=== PATIENT | male | born 1985 | race American Indian/Alaskan Native ===

== ENCOUNTER 2020-11-27 18:54 | Observation (INO) | payer OTHER ==
[2020-11-27] MEDS ORDERED: ONDANSETRON 4 MG/2 ML INJ IV ONE (21:19)
[2020-11-27] MEDS ORDERED: FAMOTIDINE 20 MG/2 ML INJ IV ONE (21:19)
[2020-11-27] MEDS ORDERED: DICYCLOMINE 20 MG/2 ML INJ IM ONE (21:20)
[2020-11-27 22:31] LABS: Basophils % (Auto) 0.3 % (0.0-1.8); Hematocrit 50.2 % (35.5-45.6); Hemoglobin 16.7 gm/dl (11.8-15.2); Lymphocytes # (Auto) 1.2 K/mm3 (1.2-5.4); Lymphocytes % (Auto) 12.5 % (13.4-35.0); Mean Corpuscular HGB Conc 33 % (32-34); Mean Corpuscular Volume 87 fl (84-94); Monocytes # (Auto) 0.3 K/mm3 (0.0-0.8); Monocytes % (Auto) 2.7 % (0.0-7.3); Platelet Count 289 K/mm3 (140-440); Red Blood Count 5.78 M/mm3 (3.65-5.03); Red Cell Distribution Width 13.3 % (13.2-15.2)
--- NOTE | 2020-11-27 22:42 | Emergency Department Report ---
<CECY LI - Last Filed: 11/28/20 06:49> ED Abdominal Pain HPI - General Chief Complaint: Abdominal Pain Stated Complaint: ABD PAIN Source: patient Mode of arrival: Ambulatory Limitations: No Limitations - History of Present Illness Initial Comments: Patient is a 35-year-old -Swazi male with a history of jhb-nhpdsum-wvcgemxbb diabetes who presents to the ED with complaint of acute onset persistent diffuse abdominal pain, nausea and vomiting with diarrhea for the last 12 hours. Patient states that the last meal he ate was from a restaur ant about 24 hours ago. Patient states that he has not been able to keep anything down including fluids since the onset of the symptoms. Patient denies fever, chills, dizziness, syncope, chest pain, sore throat, dysuria, urinary frequency and urgency, testicular pain, hematuria, sore throat, headache, lightheadedness, palpitations or change in vision and hematemesis. MD Complaint: abdominal pain, other (Nausea, vomiting and diarrhea) -: Sudden, hour(s) (12) Location: diffuse Radiation: none Migration to: no migration Severity: severe Severity scale (0 -10): 8 Quality: cramping, sharp Consistency: constant Improves With: nothing Worsens With: eating, vomiting Associated Symptoms: denies other symptoms, nausea, vomiting, diarrhea - Related Data Allergies Allergy/AdvReac Type Severity Reaction Status Date / Time No Known Allergies Allergy Verified 11/27/20 19:49 ED Review of Systems Constitutional: denies: chills, fever Eyes: denies: eye pain, eye discharge, vision change ENT: denies: ear pain, throat pain Respiratory: denies: cough, shortness of breath, wheezing Cardiovascular: denies: chest pain, palpitations Endocrine: no symptoms reported Gastrointestinal: abdominal pain, nausea, vomiting, diarrhea Genitourinary: denies: urgency, dysuria Musculoskeletal: denies: back pain, joint swelling, arthralgia Skin: denies: rash, lesions Neurological: denies: headache, weakness, paresthesias Psychiatric: denies: anxiety, depression Hematological/Lymphatic: denies: easy bleeding, easy bruising ED Past Medical Hx - Past Medical History Previous Medical History?: No Hx Diabetes: Yes (type 2) - Surgical History Past Surgical History?: No - Social History Smoking Status: Never Smoker Substance Use Type: None ED Physical Exam - General Limitations: No Limitations General appearance: alert, in no apparent distress - Head Head exam: Present: atraumatic, normocephalic, normal inspection - Eye Eye exam: Present: normal appearance, PERRL, EOMI Pupils: Present: normal accommodation - ENT ENT exam: Present: normal exam, normal orophraynx, mucous membranes moist, TM's normal bilaterally, normal external ear exam - Neck Neck exam: Present: normal inspection, full ROM - Respiratory Respiratory exam: Present: normal lung sounds bilaterally. Absent: respiratory distress, wheezes, rales, rhonchi, chest wall tenderness, accessory muscle use, decreased breath sounds, prolonged expiratory - Cardiovascular Cardiovascular Exam: Present: regular rate, normal rhythm, normal heart sounds. Absent: systolic murmur, diastolic murmur, rubs, gallop - GI/Abdominal GI/Abdominal exam: Present: soft, tenderness (Palpable diffuse severe abdominal tenderness with guarding), guarding, normal bowel sounds, hyperactive bowel sounds. Absent: distended, rebound - Extremities Exam Extremities exam: Present: normal inspection, full ROM, normal capillary refill - Back Exam Back exam: Present: normal inspection, full ROM. Absent: tenderness, CVA tenderness (R), CVA tenderness (L), muscle spasm, paraspinal tenderness, vertebral tenderness - Neurological Exam Neurological exam: Present: alert, oriented X3, CN II-XII intact, normal gait, reflexes normal - Psychiatric Psychiatric exam: Present: normal affect, normal mood, anxious - Skin Skin exam: Present: warm, dry, intact, normal color. Absent: rash ED Medical Decision Making - Lab Data Result diagrams: 11/27/20 22:00 11/27/20 22:00 - Radiology Data [address] [address] Cat Scan Report Signed Patient: JOVANY ENGLAND MR# : [id number] : 1985 Acct:[id number] Age/Sex: 35 / M ADM Date: 11/27/20 Loc: ED Attending Dr: Ordering Physician: STEPHEN WALLACE Date of Service: 11/27/20 Procedure(s): CT abdomen pelvis w con Accession Number(s): [id number] cc: STEPHEN WALLACE CT OF THE ABDOMEN AND PELVIS WITH INTRAVENOUS CONTRAST INDICATION / CLINICAL INFORMATION: Abdominal pain with nausea, vomiting and diarrhea. TECHNIQUE: The patient received 100 cc Omnipaque [address] scans at this location are performed using CT dose reduction for ALARA by means of automated exposure control. COMPARISON: None available. FINDINGS: ABDOMEN: There is mild diffuse fatty infiltration of the liver without focal lesion. The gallbladder, bile ducts, pancreas, spleen, adrenal glands and right kidney are normal. There is a subcentimeter simple cyst in the lower pole of the left kidney. There is no evidence of bowel obstruction, wall thickening or free air. No adenopathy is identified. The lung bases are clear. PELVIS: The distal ureters, urinary bladder, prostate gland and seminal vesicles are normal. There are symmetric calcifications involving the vas deferens bilaterally. A normal appendix is present. There is no evidence of diverticulitis. No abnormal mass or fluid collection is seen. I do not identify a hernia. No acute osseous abnormality is present. IMPRESSION: 1. No acute abnormality. 2. Bilateral vas deferens calcifications are characteristic of diabetes. Signer Name: Jose Zayas MD Signed: 11/28/2020 2:16 AM Workstation Name: [email or web address] Transcribed By: RT Dictated By: Jose Zayas MD Electronically Authenticated By: Jose Zayas MD Signed Date/Time: 11/28/20215 DD/ 0 TD/TT: - Medical Decision Making This is a 35-year-old -Swazi male with a history of bpr-vetxscz-frzxyefip diabetes who presents to the ED with complaint of acute onset persistent diffuse abdominal pain, nausea and vomiting with diarrhea for the last 12 hours. Patient states that the last meal he ate was from a restaurant about 24 hours ago. Patient states that he has not been able to keep anything down including fluids since the onset of the symptoms. In the ED, patient is alert and oriented x3 and is not in any distress but febrile and tachycardic in triage. Patient was treated in the ED for nausea and vomiting, also given antacids and normal saline 2 L IV bolus, also treated for pain. Lab test results were reviewed and are all nonactionable except for mild hyponatremia 135 mmol/L and hyperglycemia of 388 mg/dL. Abdomen pelvis CT scan with contrast showed no acute abnormalities. On reevaluation, patient's nausea and vomiting resolved with medications. Patient felt better tachycardia also resolved. However patient blood glucose remained high at 388 mg/dL despite the patient receiving IV fluids. Patient was therefore treated with insulin 10 units IV x1 and observed in the ED. Patient care was transferred to Mr. Hardy Araujo TRUCKLOAD OWNER OPERATOR at shift change. He shall review the patient's final [id number] glucose test results and disposition the patient accordingly. Patient shall be discharged home on antiemetics, antacids and antispasmodic medications. - Differential Diagnosis Gastroenteritis; gastritis; appendicitis; cholecystitis; UTI; GERD ED Disposition Clinical Impression: Intractable nausea and vomiting Hyperglycemia due to type 2 diabetes mellitus Qualifiers: Diabetes mellitus salvage determiner insulin use: without assisted use Qualified Code(s): E11.65 - Type 2 diabetes mellitus with hyperglycemia DKA (diabetic ketoacidoses) Qualifiers: Diabetes mellitus type: type 2 Diabetes mellitus complication detail: without coma Qualified Code(s): E11.10 - Type 2 diabetes mellitus with ketoacidosis without coma Disposition: 09 OP ADMIT IP TO THIS HOSP Is pt being admited?: No Does the pt Need Aspirin: No Condition: Stable Instructions: Diabetes Mellitus Type 2 in Adults (ED), Diabetic Ketoacidosis (ED) Time of Disposition: 06:12 Print Language: TURKISH <HARDY ARAUJO - Last Filed: 11/28/20 09:07> ED Review of Systems ROS: Stated complaint: ABD PAIN Other details as noted in HPI ED Course Vital Signs 11/27/20 11/28/20 11/28/20 19:49 02:56 06:29 Temperature 98.7 F Pulse Rate 110 H 114 H Respiratory 16 18 18 Rate Blood Pressure 158/97 Blood Pressure 155/70 [Right] O2 Sat by Pulse 97 Oximetry 11/28/20 07:53 Temperature Pulse Rate 114 H Respiratory 18 Rate Blood Pressure Blood Pressure [Right] O2 Sat by Pulse 99 Oximetry - Reevaluation(s) Reevaluation #1: 11/28/20 07:10 At this time patient signed out to me by Cecy MITCHELL for pending glucose less than 250 and patient to be discharged. Upon exam patient is stable with no nausea vo miting. Patient is resting comfortably with no acute signs of distress. Patient is still slightly tachycardic at 118. 1 L normal fluids will be administered and if sugar is not less than 300 patient will receive 5 more units. Patient was consulted with Dr. Epperson and agrees to the ED plan of ca re. - Consultations Consultation #1: 11/28/20 09:03 Patient has been consulted with hospitalist Dr. RECINOS about patient history, physical exam, and labs and accepts patient to services. ED Medical Decision Making - Lab Data Result diagrams: 11/27/20 22:00 11/27/20 22:00 - Medical Decision Making Patient was originally seen by Cecy MITCHELL and was signed out to me for pending glucose levels less than 250. Despite giving medical resuscitation in the ER with fluids, nausea medication and insulin patient's nausea is still present with tachycardia and hyperglycemia. Patient admitted with hospitalist at this time. At time of admission, the patient does not seem toxic or ill in appearance. No acute signs of distress noted. Patient agrees to admission treatment plan of care. No further questions noted by the patient. Critical care attestation.: If time is entered above; I have spent that time in minutes in the direct care of this critically ill patient, excluding procedure time. ED Disposition Is pt being admited?: Yes Time of Disposition: 09:07
[2020-11-27 22:45] LABS: Alanine Aminotransferase 27 units/L (7-56); Albumin 4.9 g/dL (3.9-5); BUN/Creatinine Ratio 12; Blood Urea Nitrogen 12 mg/dL (9-20); Calcium 10.3 mg/dL (8.4-10.2); Hemolysis Index 8
--- NOTE | 2020-11-28 02:20 | Cat Scan Report ---
CT OF THE ABDOMEN AND PELVIS WITH INTRAVENOUS CONTRAST INDICATION / CLINICAL INFORMATION: Abdominal pain with nausea, vomiting and diarrhea. TECHNIQUE: The patient received 100 cc Omnipaque [address] scans at this location are performed using CT dose reduction for ALARA by means of automated exposure control. COMPARISON: None available. FINDINGS: ABDOMEN: There is mild diffuse fatty infiltration of the liver without focal lesion. The gallbladder, bile ducts, pancreas, spleen, adrenal glands and right kidney are normal. There is a subcentimeter s imple cyst in the lower pole of the left kidney. There is no evidence of bowel obstruction, wall thic kening or free air. No adenopathy is identified. The lung bases are clear. PELVIS: The distal ureters, urinary bladder, prostate gland and seminal vesicles are normal. There ar e symmetric calcifications involving the vas deferens bilaterally. A normal appendix is present. Ther e is no evidence of diverticulitis. No abnormal mass or fluid collection is seen. I do not identify a hernia. No acute osseous abnormality is present. IMPRESSION: 1. No acute abnormality. 2. Bilateral vas deferens calcifications are characteristic of diabetes. Signer Name: Jose Zayas MD Signed: 11/28/2020 2:16 AM Workstation Name: [email or web address]
[2020-11-28] MEDS ORDERED: SODIUM CHLORIDE 0.9% 1000 ML 1,000 ML IV ONE ×3 (02:33→08:12)
[2020-11-28] MEDS ORDERED: FAMOTIDINE 20 MG/2 ML INJ IV ONE (02:41)
[2020-11-28] MEDS ORDERED: PROCHLORPERAZINE EDISYLATE 10 MG/2 ML VIAL IV ONE (02:41)
[2020-11-28] MEDS ORDERED: MORPHINE 4 MG/1 ML INJ IV ONE (02:41)
[2020-11-28 06:13] LABS: Bilirubin,Urine NEG (Negative); Blood,Urine NEG (Negative); Color,Urine Straw (Yellow); Urobilinogen,Urine < 2.0 mg/dL (<2.0); WBC,Urine < 1.0 /HPF (0.0-6.0)
[2020-11-28] MEDS ORDERED: INSULIN REGULAR, HUMAN 100 UNITS/1 ML IV ONE ×2 (06:28→08:12)
[2020-11-28] MEDS ORDERED: ONDANSETRON 4 MG/2 ML INJ IV ONE (06:53)
[2020-11-28] MEDS ORDERED: DEXTROSE 50% IN WATER (25GM) 50 ML SYRINGE IV PRN (09:22)
[2020-11-28] MEDS ORDERED: METOCLOPRAMIDE 10 MG/2 ML INJ IV PRN (09:24)
[2020-11-28] MEDS ORDERED: DICYCLOMINE 10 MG/5 ML ORAL LIQD PO PRN (09:25)
[2020-11-28] MEDS ORDERED: INSULIN GLARGINE 100 UNITS/ML SUB-Q ONE (10:00)
--- NOTE | 2020-11-28 11:29 | History and Physical Report ---
History of Present Illness Date of examination: 11/28/20 Chief complaint: Abdominal pain History of present illness: 35-year-old -Tongan male with past medical history significant for diabetes mellitus on Metformin presented to the emergency department complaining of abdominal pain that started 2 days ago. Pain was diffuse, 10 out of 10 intensity, with no radiation, no alleviating or aggravating factors identified. Abdominal pain is was associated with vomiting but denied diarrhea or constipation. Patient presented to the emergency department. In the emergency department CT abdomen and pelvis was done and was normal. Patient's blood pressure was persistently high in the 300s and patient admitted to the floor for observation for uncontrolled diabetes mellitus and abdominal pain. Abdominal pain currently is 3 out of 10. REVIEW OF SYSTEMS: GENERAL: no weight change, no fatigue, no fever HEAD: no head ache EYES: no blurry vision, no acute visual loss EARS: no hearing loss, no discharge, no earache NOSE: no stuffiness, no sneezing, no discharge MOUTH, THROAT AND NECK: no bleeding gums, no sore throat, no swollen neck CARDIAC: no palpitations, no dyspnea on exertion, no orthopnea, no PND, no edema, no chest pain RESPIRATORY: no shortness of breath, no wheeze, no cough, no sputum, no hemoptysis, no asthma GI: no decreased appetite, no nausea, no vomiting, no dysphagia, no diarrhea, no constipation, no abdominal pain URINARY: No urgency, hematuria, dysuria or frequency. MUSCULOSKELETAL: no muscle weakness, no pain, no joint stiffness NEUROLOGIC: no loss of sensation/numbness, no tingling, no tremors, no weakness/paralysis HEMATOLOGIC: no anemia, no easy bruising SKIN: no rashes ENDOCRINE: + diabetes PSYCHIATRIC: no anxiety, no depression, no suicidal ideations Past History Past Medical History: diabetes Past Surgical History: No surgical history Social history: full code. denies: smoking, alcohol abuse, prescription drug abuse, IV drug use Family history: diabetes (Mother) Medications and Allergies Allergies Allergy/AdvReac Type Severity Reaction Status Date / Time No Known Allergies Allergy Verified 11/27/20 19:49 Active Meds: Active Medications Dextrose (Dextrose 50% In Water (25gm) 50 Ml Syringe) 50 ml IV Q30MIN PRN; Protocol PRN Reason: Hypoglycemia Dicyclomine HCl (Dicyclomine 10 Mg/5 Ml Oral Liqd) 10 mg PO Q6H PRN PRN Reason: Pain , Severe (7-10) Insulin Human Lispro (Insulin Lispro 100 Unit/Ml) 0 unit SUB-Q AC BAIRON; Protocol Insulin Human NPH (Insulin Nph, Human 100 Unit/1 Ml) 30 unit SUB-Q QPMDIAB BAIRON Metoclopramide HCl (Metoclopramide 10 Mg/2 Ml Inj) 10 mg IV Q6H PRN PRN Reason: Nausea And Vomiting Morphine Sulfate (Morphine 2 Mg/1 Ml Inj) 2 mg IV Q4H PRN PRN Reason: Pain, Moderate (4-6) Exam - Physical Exam Narrative exam: Not in cardiopulmonary distress. The patient appeared well nourished and normally developed. Vital signs as documented. Head exam is unremarkable. No scleral icterus . Neck is without jugular venous distension, thyromegaly, or carotid bruits. Lungs are clear to auscultation. Cardiac exam reveals regular rate and Rhythm. Abdominal exam reveals normal bowel sounds, nontender, no organomegaly. Extremities are nonedematous and both femoral and pedal pulses are normal. MANAGER OF INTERNATIONAL: Alert and oriented 3. No focal weakness. - Constitutional Vitals: Temp Pulse Resp BP Pulse Ox 98.7 F 114 H 18 155/70 99 11/27/20 19:49 11/28/20 07:53 11/28/20 07:53 11/28/20 06:29 11/28/20 07:53 Results - Labs CBC & Chem 7: 11/27/20 22:00 11/27/20 22:00 Labs: Laboratory Last Values WBC 9.5 K/mm3 (4.5-11.0) 11/27/20 22:00 RBC 5.78 M/mm3 (3.65-5.03) H 11/27/20 22:00 Hgb 16.7 gm/dl (11.8-15.2) H 11/27/20 22:00 Hct 50.2 % (35.5-45.6) H 11/27/20 22:00 MCV 87 fl (84-94) 11/27/20 22:00 MCH 29 pg (28-32) 11/27/20 22:00 MCHC 33 % (32-34) 11/27/20 22:00 RDW 13.3 % (13.2-15.2) 11/27/20 22:00 Plt Count 289 K/mm3 (140-440) 11/27/20 22:00 Lymph % (Auto) 12.5 % (13.4-35.0) L 11/27/20 22:00 [place] % (Auto) 2.7 % (0.0-7.3) 11/27/20 22:00 Eos % (Auto) 0.0 % (0.0-4.3) 11/27/20 22:00 Baso % (Auto) 0.3 % (0.0-1.8) 11/27/20 22:00 Lymph # (Auto) 1.2 K/mm3 (1.2-5.4) 11/27/20 22:00 [place] # (Auto) 0.3 K/mm3 (0.0-0.8) 11/27/20 22:00 Eos # (Auto) 0.0 K/mm3 (0.0-0.4) 11/27/20 22:00 Baso # (Auto) 0.0 K/mm3 (0.0-0.1) 11/27/20 22:00 Seg Neutrophils % 84.5 % (40.0-70.0) H 11/27/20 22:00 Seg Neutrophils # 8.0 K/mm3 (1.8-7.7) H 11/27/20 22:00 VBG pH 7.293 (7.320-7.420) L 11/28/20 08:16 Sodium 135 mmol/L (137-145) L 11/27/20 22:00 Potassium 4.2 mmol/L (3.6-5.0) 11/27/20 22:00 Chloride 93.7 mmol/L (98-107) L 11/27/20 22:00 Carbon Dioxide 25 mmol/L (22-30) 11/27/20 22:00 Anion Gap 21 mmol/L 11/27/20 22:00 BUN 12 mg/dL (9-20) 11/27/20 22:00 Creatinine 1.0 mg/dL (0.8-1.3) 11/27/20 22:00 Estimated GFR > 60 ml/min 11/27/20 22:00 BUN/Creatinine Ratio 12 % 11/27/20 22:00 Glucose 388 mg/dL (75-100) H 11/27/20 22:00 POC Glucose 353 mg/dL (70-105) H 11/28/20 08:03 Hemoglobin A1c 12.9 % (4-6) H 11/28/20 Unknown Calcium 10.3 mg/dL (8.4-10.2) H 11/27/20 22:00 Total Bilirubin 0.60 mg/dL (0.1-1.2) 11/27/20 22:00 AST 15 units/L (5-40) 11/27/20 22:00 ALT 27 units/L (7-56) 11/27/20 22:00 Alkaline Phosphatase 127 units/L (35-129) 11/27/20 22:00 Total Protein 8.8 g/dL (6.3-8.2) H 11/27/20 22:00 Albumin 4.9 g/dL (3.9-5) 11/27/20 22:00 Albumin/Globulin Ratio 1.3 % 11/27/20 22:00 Lipase 13 units/L (13-60) 11/27/20 22:00 Urine Color Straw (Yellow) 11/28/20 05:53 Urine Turbidity Clear (Clear) 11/28/20 05:53 Urine pH 5.0 (5.0-7.0) 11/28/20 05:53 Ur Specific Sarita 1.048 (1.003-1.030) H 11/28/20 05:53 Urine Protein 100 mg/dl mg/dL (Negative) 11/28/20 05:53 Urine Glucose (UA) >=500 mg/dL (Negative) 11/28/20 05:53 Urine Ketones 80 mg/dL (Negative) 11/28/20 05:53 Urine Blood Neg (Negative) 11/28/20 05:53 Urine Nitrite Neg (Negative) 11/28/20 05:53 Urine Bilirubin Neg (Negative) 11/28/20 05:53 Urine Urobilinogen < 2.0 mg/dL (<2.0) 11/28/20 05:53 Ur Leukocyte Esterase Neg (Negative) 11/28/20 05:53 Urine WBC (Auto) < 1.0 /HPF (0.0-6.0) 11/28/20 05:53 Urine RBC (Auto) 2.0 /HPF (0.0-6.0) 11/28/20 05:53 Assessment and Plan Assessment and plan: Abdominal pain -The abdomen and pelvis was normal -Traumatic treatment Diabetes mellitus with hyperglycemia -Blood sugar was in the 300s, patient was not in DKA -I started him on Lantus and sliding scale insulin -Check hemoglobin A1c -Accu-Chek CODE STATUS -Full DVT prophylaxis -Lovenox Disposition; admit to medical floor for observation. Plan of care was discussed with the patient and was in agreement with the plan of care. Advance Directives: Yes VTE prophylaxis?: Chemical Plan of care discussed with patient/family: Yes
[2020-11-28] MEDS: INSULIN LISPRO 100 UNIT/ML SUB-Q SCH ×2 (12:00→17:00)
[2020-11-28] MEDS ORDERED: INSULIN NPH, HUMAN 100 UNIT/1 ML SUB-Q SCH (17:00)
[2020-11-28] MEDS: MORPHINE 2 MG/1 ML INJ IV PRN ×2 (18:13→23:33)
[2020-11-28] MEDS ORDERED: ENOXAPARIN 40 MG/0.4 ML INJ SUB-Q SCH (22:00)
[2020-11-28 22:50] VITALS: BP 147/84
[2020-11-29 05:09] LABS: BUN/Creatinine Ratio 13; Blood Urea Nitrogen 10 mg/dL (9-20); Calcium 9.3 mg/dL (8.4-10.2); Hemolysis Index 5
[2020-11-29] MEDS: INSULIN LISPRO 100 UNIT/ML SUB-Q SCH ×2 (08:48→13:26)
--- NOTE | 2020-11-29 12:10 | Discharge Summary ---
Providers - Providers Date of Admission: 11/28/20 09:07 Attending physician: RAJEEV FOUNTAIN MD 11/28/20 09:04 Consult to Physician [CONS] Stat Comment: Consulting Provider: CHANTELLE RECINOS Physician Instructions: Reason For Exam: acute DKA Primary care physician: CLAIM AUDITOR Hospitalization Reason for admission: Abdominal pain Condition: Stable Hospital course: 35-year-old -Canadian male with past medical history significant for diabetes mellitus on Metformin presented to the emergency department complaining of abdominal pain that started 2 days ago. Pain was diffuse, 10 out of 10 intensity, with no radiation, no alleviating or aggravating factors identified. Abdominal pain is was associated with vomiting but denied diarrhea or constipation. Patient presented to the emergency department. In the emergency department CT abdomen and pelvis was done and was normal. Patient's blood pressure was persistently high in the 300s and patient admitted to the floor for observation for uncontrolled diabetes mellitus and abdominal pain. Abdominal pain currently is 3 out of 10. Patient today clinically stable, discussed extensively with the patient and he verbalized understanding, pain is down to 0. He is ambulating and tolerating PO diet. I have recommended outpatient GI eval for gastoparesis secondary to DM Replace electrolytes. Also discussed with the patient importance of switching to insulin therapy considering an A1c of 12.9 indicating poorly controlled diabetes. Abdominal pain Gastroenteritis Gastropresis- possibly Diabetes mellitus with hyperglycemia Hypokalemia Disposition: DC-01 TO HOME OR SELFCARE Final Discharge Diagnosis (Prints w/discharge instructions): Abdominal pain likely secondary to gastroparesis. Time spent for discharge: 35-minute Core Measure Documentation - Palliative Care Palliative Care/ Comfort Measures: Not Applicable - Core Measures Any of the following diagnoses?: none Exam - Physical Exam Narrative exam: VITAL SIGNS: Reviewed. GENERAL: The patient appears normally developed, Vital signs as documented. HEAD: No signs of head trauma. EYES: Pupils are equal. Extraocular motions intact. EARS: Hearing grossly intact. MOUTH: Oropharynx is normal. NECK: No adenopathy, no JVD. CHEST: Chest with clear breath sounds bilaterally. No wheezes, rales, or rhonchi. CARDIAC: Regular rate and rhythm. S1 and S2, without murmurs, gallops, or rubs. VASCULAR: No Edema. Peripheral pulses normal and equal in all extremities. ABDOMEN: Soft, non tender and non distended. No rebound or guarding, and no masses palpated. Bowel Sounds normal. MUSCULOSKELETAL: Good range of motion of all major joints. Extremities without clubbing, cyanosis or edema. NEUROLOGIC EXAM: Alert and oriented x 3 No focal sensory or strength deficits. Speech normal. Follows commands. PSYCHIATRIC: Mood normal. SKIN: detail exam as documented in skin assessment - Constitutional Vitals: Temp Pulse Resp BP Pulse Ox 98.6 F 94 H 20 147/84 98 11/28/20 22:49 11/28/20 22:49 11/28/20 22:49 11/28/20 22:49 11/28/20 22:49 Plan Activity: advance as tolerated, fall precautions Diet: diabetic Special Instructions: record daily weights, record daily BP diary Plan of Treatment: Recommend follow-up with your primary care physician to be switched to insulin as blood sugar is poorly controlled with an A1c of 12.9. Follow up with: PRIMARY MD SUZIE [Primary Care Provider] - 7 Days NICOLETTE GREEN MD [Staff Physician] - 7 Days Prescriptions: Dicyclomine [Bentyl] 10 mg PO Q6H PRN #30 ml PRN Reason: Pain , Severe (7-10)
[2020-11-29] MEDS ORDERED: POTASSIUM CHLORIDE ER 20 MEQ TAB PO SCH (12:30)
[2020-11-29] MEDS ORDERED: POTASSIUM CHLORIDE ER 20 MEQ TAB PO NR (13:00)
== END 2020-11-29 17:44 | disposition home or self-care (01) ==
LOC: ED 18:54 → INTOOBSV 11-28 09:07 → 3A 11-28 09:07
PROVIDERS: ADMIT Internal Medicine; ATTEND Internal Medicine
DX: K52.9 Noninfective gastroenteritis and colitis, unspecified (principal); E11.65 Type 2 diabetes mellitus with hyperglycemia; E11.10 Type 2 diabetes mellitus with ketoacidosis without coma; K31.84 Gastroparesis; E87.6 Hypokalemia; Z79.4 Long term (current) use of insulin
CPT/HCPCS: 36415; 74177; 80048; 80053; 81001; 82805; 82962; 83036; 83690; 85025; 96361; 96372; 96374; 96375; 96376; 99285; G0378; J0780; J1650; J2270; J7030; Q9967; J1815

== ENCOUNTER 2020-12-19 05:33 | Emergency (ER) | payer OTHER ==
[2020-12-19 07:27] LABS: Basophils % (Auto) 0.4 % (0.0-1.8); Eosinophils % (Auto) 0.1 % (0.0-4.3); Hematocrit 45.3 % (35.5-45.6); Hemoglobin 15.2 gm/dl (11.8-15.2); Lymphocytes # (Auto) 1.8 K/mm3 (1.2-5.4); Lymphocytes % (Auto) 20.6 % (13.4-35.0); Mean Corpuscular HGB Conc 34 % (32-34); Mean Corpuscular Volume 86 fl (84-94); Monocytes # (Auto) 0.6 K/mm3 (0.0-0.8); Monocytes % (Auto) 6.5 % (0.0-7.3); Platelet Count 266 K/mm3 (140-440); Red Blood Count 5.24 M/mm3 (3.65-5.03); Red Cell Distribution Width 13.3 % (13.2-15.2)
[2020-12-19 07:48] LABS: Alanine Aminotransferase 22 units/L (7-56); Albumin 4.2 g/dL (3.9-5); BUN/Creatinine Ratio 16; Blood Urea Nitrogen 14 mg/dL (9-20); Calcium 9.4 mg/dL (8.4-10.2); Hemolysis Index 16
[2020-12-19] MEDS ORDERED: ONDANSETRON 4 MG/2 ML INJ IV ONE ×2 (10:18→11:53)
[2020-12-19] MEDS ORDERED: FAMOTIDINE 20 MG/2 ML INJ IV ONE (10:18)
[2020-12-19] MEDS ORDERED: MORPHINE 4 MG/1 ML INJ IV ONE (10:18)
[2020-12-19] MEDS ORDERED: DICYCLOMINE 20 MG TAB PO ONE (10:18)
[2020-12-19] MEDS ORDERED: SODIUM CHLORIDE 0.9% 1000 ML 1,000 ML IV ONE ×2 (10:18→11:54)
--- NOTE | 2020-12-19 11:56 | Emergency Department Report ---
ED Abdominal Pain HPI - General Chief Complaint: Abdominal Pain Stated Complaint: HIGH BLOOD SUGAR/VOMITING Time Seen by Provider: 12/19/20 10:17 Source: patient Mode of arrival: Ambulatory Limitations: Language Barrier - History of Present Illness Initial Comments: This is a 35-year-old male nontoxic, well nourished in appearance, no acute signs of distress presents to the ED with 2 complaints: 1) nausea and vomiting and abdominal pain several days. Patient describes vomiting as food content and yellow gastric acid. Patient describes abdominal pain as cramping and aching with level of 3/10 diffuse. Patient denies chest pain, short of breath, fever, hemoptysis, blood in stool, chills, headache, stiff neck, numbness or tingling. Patient denies any diarrhea or constipation. Denies any blood in stool. Patient denies any recent travels. Patient denies any drug allergies . 2) sore throat x several days. Patient describes sore throat as swallowing razer blades. Patient denies any fever, chills, headache, stiff neck, nausea, vomiting, chest pain, shortness of breath, numbness or tingling. Patient stated has some hoarseness but denies drooling or unable to swallow saliva. Patient stated PMH includes DM which he stated is taking his medications as prescribed by his PCP. MD Complaint: abdominal pain -: days(s) Location: diffuse Radiation: none Migration to: no migration Severity: mild Severity scale (0 -10): 8 Quality: cramping, aching Consistency: constant Improves With: nothing Worsens With: nothing Associated Symptoms: nausea, vomiting. denies: diarrhea, fever, chills, constipation, dysuria, hematemesis, hematochezia, melena, hematuria, anorexia, syncope - Related Data Home Medications Medication Instructions Recorded Confirmed Last Taken Lisinopril 11/28/20 Unknown glipiZIDE 11/28/20 Unknown metFORMIN [Glucophage] 500 mg PO QDAY 11/28/20 11/28/20 1 Day Ago ~11/27/20 Previous Rx's Medication Instructions Recorded Last Taken Type Dicyclomine [Bentyl] 10 mg PO Q6H PRN #30 ml 11/29/20 Unknown Rx Ciprofloxacin HCl 500 mg PO BID #14 tablet 12/19/20 Unknown Rx Nystas/Diphen/Xyl Visc/Mylanta 30 ml MM Q8H PRN 5 Days #1 bottle 12/19/20 Unknown Rx [Magic Mouthwash] Ondansetron [Zofran Odt] 4 mg PO Q8HR PRN #12 tab.rapdis 12/19/20 Unknown Rx metroNIDAZOLE [Flagyl] 500 mg PO Q12HR #14 tab 12/19/20 Unknown Rx Allergies Allergy/AdvReac Type Severity Reaction Status Date / Time No Known Allergies Allergy Verified 11/27/20 19:49 ED Review of Systems ROS: Stated complaint: HIGH BLOOD SUGAR/VOMITING Other details as noted in HPI Comment: All other systems reviewed and negative Constitutional: denies: chills, fever Eyes: denies: eye pain, eye discharge, vision change ENT: throat pain. denies: ear pain, dental pain, hearing loss, epistaxis, congestion Respiratory: denies: cough, shortness of breath, wheezing Cardiovascular: denies: chest pain, palpitations Endocrine: no symptoms reported Gastrointestinal: abdominal pain, nausea, vomiting. denies: diarrhea, constipation, hematemesis, melena, hematochezia Genitourinary: denies: urgency, dysuria Musculoskeletal: denies: back pain, joint swelling, arthralgia Skin: denies: rash, lesions Neurological: denies: headache, weakness, paresthesias Psychiatric: denies: anxiety, depression Hematological/Lymphatic: denies: easy bleeding, easy bruising ED Past Medical Hx - Past Medical History Previous Medical History?: Yes Hx Hypertension: Yes Hx Heart Attack/AMI: No Hx Congestive Heart Failure: No Hx Diabetes: Yes Hx Deep Vein Thrombosis: No Hx Pulmonary Embolism: No Hx GERD: No Hx Liver Disease: No Hx Renal Disease: No Hx Sickle Cell Disease: No Hx Arthritis: No Hx Headaches / Migraines: No Hx Seizures: No Hx Kidney Stones: No Hx Asthma: No Hx COPD: No Hx Tuberculosis: No Hx Dementia: No Hx HIV: No - Surgical History Past Surgical History?: No Hx Coronary Stent: No Hx Open Heart Surgery: No Hx Pacemaker: No Hx Internal Defibrillator: No Hx Cholecystectomy: No Hx Appendectomy: No Hx Breast Surgery: No - Social History Smoking Status: Never Smoker Substance Use Type: None - Medications Home Medications: Home Medications Medication Instructions Recorded Confirmed Last Taken Type Lisinopril 11/28/20 Unknown History glipiZIDE 11/28/20 Unknown History metFORMIN [Glucophage] 500 mg PO QDAY 11/28/20 11/28/20 1 Day Ago History ~11/27/20 Dicyclomine [Bentyl] 10 mg PO Q6H PRN #30 ml 11/29/20 Unknown Rx Ciprofloxacin HCl 500 mg PO BID #14 tablet 12/19/20 Unknown Rx Nystas/Diphen/Xyl Visc/Mylanta 30 ml MM Q8H PRN 5 Days #1 bottle 12/19/20 Unknown Rx [Magic Mouthwash] Ondansetron [Zofran Odt] 4 mg PO Q8HR PRN #12 tab.rapdis 12/19/20 Unknown Rx metroNIDAZOLE [Flagyl] 500 mg PO Q12HR #14 tab 12/19/20 Unknown Rx ED Physical Exam - General Limitations: No Limitations General appearance: alert, in no apparent distress - Head Head exam: Present: atraumatic, normocephalic - Eye Eye exam: Present: normal appearance - Expanded ENT Exam Expanded Ear exam: Present: normal external inspection Mouth exam: Present: normal external inspection, tongue normal. Absent: drooli ng, trismus, muffled voice Teeth exam: Present: normal inspection Throat exam: Positive: tonsillar erythema, tonsillomegaly, other (Uvula swelling noted otherwise no airway compromise). Negative: tonsillar exudate, R peritonsillar mass, L peritonsillar mass - Neck Neck exam: Present: normal inspection, full ROM. Absent: tenderness, meningismus, lymphadenopathy - Respiratory Respiratory exam: Present: normal lung sounds bilaterally. Absent: respiratory distress, wheezes, rales, rhonchi, stridor, chest wall tenderness, accessory muscle use, decreased breath sounds, prolonged expiratory - Cardiovascular Cardiovascular Exam: Present: regular rate, normal rhythm, normal heart sounds. Absent: irregular rhythm, systolic murmur, diastolic murmur, rubs, gallop - GI/Abdominal GI/Abdominal exam: Present: soft, tenderness (Diffuse), normal bowel sounds. Absent: distended, guarding, rebound, rigid, diminished bowel sounds - Extremities Exam Extremities exam: Present: normal inspection, full ROM - Back Exam Back exam: Present: normal inspection, full ROM. Absent: tenderness, CVA tenderness (R), CVA tenderness (L), muscle spasm, paraspinal tenderness, vertebral tenderness, rash noted - Neurological Exam Neurological exam: Present: alert, oriented X3, normal gait - Psychiatric Psychiatric exam: Present: normal affect, normal mood - Skin Skin exam: Present: warm, dry, intact, normal color. Absent: rash ED Course Vital Signs 12/19/20 12/19/20 12/19/20 06:38 11:16 17:59 Temperature 98.3 F 98.4 F Pulse Rate 109 H 101 H Respiratory 18 18 18 Rate Blood Pressure 142/85 Blood Pressure 145/76 [Right] O2 Sat by Pulse 98 100 Oximetry - Reevaluation(s) Reevaluation #1: 12/19/20 11:55 Patient is speaking in full sentences with no signs of distress noted. ED Medical Decision Making - Lab Data Result diagrams: 12/19/20 07:08 12/19/20 07:08 Lab Results 12/19/20 12/19/20 12/19/20 Range/Units 06:39 07:08 07:08 WBC 8.6 (4.5-11.0) K/mm3 RBC 5.24 H (3.65-5.03) M/mm3 Hgb 15.2 (11.8-15.2) gm/dl Hct 45.3 (35.5-45.6) % MCV 86 (84-94) fl MCH 29 (28-32) pg MCHC 34 (32-34) % RDW 13.3 (13.2-15.2) % Plt Count 266 (140-440) K/mm3 Lymph % (Auto) 20.6 (13.4-35.0) % [place] % (Auto) 6.5 (0.0-7.3) % Eos % (Auto) 0.1 (0.0-4.3) % Baso % (Auto) 0.4 (0.0-1.8) % Lymph # (Auto) 1.8 (1.2-5.4) K/mm3 [place] # (Auto) 0.6 (0.0-0.8) K/mm3 Eos # (Auto) 0.0 (0.0-0.4) K/mm3 Baso # (Auto) 0.0 (0.0-0.1) K/mm3 Seg Neutrophils % 72.4 H (40.0-70.0) % Seg Neutrophils # 6.2 (1.8-7.7) K/mm3 VBG pH (7.320-7.420) Sodium 132 L (137-145) mmol/L Potassium 3.8 (3.6-5.0) mmol/L Chloride 90.4 L (98-107) mmol/L Carbon Dioxide 28 (22-30) mmol/L Anion Gap 17 mmol/L BUN 14 (9-20) mg/dL Creatinine 0.9 (0.8-1.3) mg/dL Estimated GFR > 60 ml/min BUN/Creatinine Ratio 16 % Glucose 317 H (75-100) mg/dL POC Glucose 309 H (70-105) mg/dL Calcium 9.4 (8.4-10.2) mg/dL Total Bilirubin 0.60 (0.1-1.2) mg/dL AST 14 (5-40) units/L ALT 22 (7-56) units/L Alkaline Phosphatase 107 (35-129) units/L Total Protein 8.0 (6.3-8.2) g/dL Albumin 4.2 (3.9-5) g/dL Albumin/Globulin Ratio 1.1 % Lipase 16 (13-60) units/L Urine Color (Yellow) Urine Turbidity (Clear) Urine pH (5.0-7.0) Ur Specific [place] (1.003-1.030) Urine Protein (Negative) mg/dL Urine Glucose (UA) (Negative) mg/dL Urine Ketones (Negative) mg/dL Urine Blood (Negative) Urine Nitrite (Negative) Urine Bilirubin (Negative) Urine Urobilinogen (<2.0) mg/dL Ur Leukocyte Esterase (Negative) Urine WBC (Auto) (0.0-6.0) /HPF Urine RBC (Auto) (0.0-6.0) /HPF U Epithel Cells (Auto) (0-13.0) /HPF Group A Strep Rapid (Negative) 12/19/20 12/19/20 12/19/20 Range/Units 07:08 13:19 Unknown WBC (4.5-11.0) K/mm3 RBC (3.65-5.03) M/mm3 Hgb (11.8-15.2) gm/dl Hct (35.5-45.6) % MCV (84-94) fl MCH (28-32) pg MCHC (32-34) % RDW (13.2-15.2) % Plt Count (140-440) K/mm3 Lymph % (Auto) (13.4-35.0) % [place] % (Auto) (0.0-7.3) % Eos % (Auto) (0.0-4.3) % Baso % (Auto) (0.0-1.8) % Lymph # (Auto) (1.2-5.4) K/mm3 [place] # (Auto) (0.0-0.8) K/mm3 Eos # (Auto) (0.0-0.4) K/mm3 Baso # (Auto) (0.0-0.1) K/mm3 Seg Neutrophils % (40.0-70.0) % Seg Neutrophils # (1.8-7.7) K/mm3 VBG pH 7.338 (7.320-7.420) Sodium (137-145) mmol/L Potassium (3.6-5.0) mmol/L Chloride (98-107) mmol/L Carbon Dioxide (22-30) mmol/L Anion Gap mmol/L BUN (9-20) mg/dL Creatinine (0.8-1.3) mg/dL Estimated GFR ml/min BUN/Creatinine Ratio % Glucose (75-100) mg/dL POC Glucose (70-105) mg/dL Calcium (8.4-10.2) mg/dL Total Bilirubin (0.1-1.2) mg/dL AST (5-40) units/L ALT (7-56) units/L Alkaline Phosphatase (35-129) units/L Total Protein (6.3-8.2) g/dL Albumin (3.9-5) g/dL Albumin/Globulin Ratio % Lipase (13-60) units/L Urine Color Straw (Yellow) Urine Turbidity Clear (Clear) Urine pH 5.0 (5.0-7.0) Ur Specific [place] 1.033 H (1.003-1.030) Urine Protein 30 mg/dl (Negative) mg/dL Urine Glucose (UA) >=500 (Negative) mg/dL Urine Ketones 80 (Negative) mg/dL Urine Blood Neg (Negative) Urine Nitrite Neg (Negative) Urine Bilirubin Neg (Negative) Urine Urobilinogen < 2.0 (<2.0) mg/dL Ur Leukocyte Esterase Neg (Negative) Urine WBC (Auto) < 1.0 (0.0-6.0) /HPF Urine RBC (Auto) 1.0 (0.0-6.0) /HPF U Epithel Cells (Auto) < 1.0 (0-13.0) /HPF Group A Strep Rapid Negative (Negative) - Radiology Data [address] [address] Cat Scan Report Signed Patient: JOVANY ENGLAND MR# : [id number] : 1985 Acct:[id number] Age/Sex: 35 / M ADM Date: 12/19/20 Loc: ED Attending Dr: Ordering Physician: MANJEET ARAUJO NP Date of Service: 12/19/20 Procedure(s): CT neck w con Accession Number(s): [id number] cc: MANJEET ARAUJO NP NECK CT 12/19/2020 HISTORY: tonillar/uvula swelling r/o abscess omnipaque 300 100ml. Patient had an abdominal CT scan earlier today for abdominal pain FINDINGS: Contrast enhanced CT images of the soft tissues of the neck were obtained. Images are evaluated in the axial, coronal, and sagittal planes. There is no evidence of abnormal neck mass, fluid collection, or inflammation. There is a normal CT appearance to the laryngeal structures, epiglottis, and uvula. There is no evidence of tonsillar lymphoid hyperplasia. There is a normal CT appearance to the parotid and submandibular glands. Thyroid gland is unremarkable. IMPRESSION: No significant abnormality. All CT scans at this location are performed using dose reduction to ALARA by means of automated exposure control. Signer Name: Alek Love MD Signed: 12/19/2020 4:36 PM Workstation Name: [id number] Transcribed By: AO Dictated By: Alek Love MD Electronically Authenticated By: Alek Love MD Signed Date/Time: 12/19/20 163 DD/ 163 TD/TT: [address] [address] Cat Scan Report Signed Patient: JOVANY ENGLAND MR# : [id number] : 0 1985 Acct:[id number] Age/Sex: 35 / M ADM Date: 12/19/20 Loc: ED Attending Dr: Ordering Physician: MANJEET ARAUJO NP Date of Service: 12/19/20 Procedure(s): CT abdomen pelvis w con Accession Number(s): [id number] cc: MANJEET ARAUJO NP CT abdomen pelvis w con INDICATION / CLINICAL INFORMATION: Diffuse abdominal pain TECHNIQUE: Routine CT abdomen pelvis with contrast All CT scans at this location are performed using CT dose reduction for ALARA by means of automated exposure control. COMPARISON: 11/28/2020 FINDINGS: Abdomen and pelvis: The lower lungs are clear. The liver is fatty. The gallbladder contains a small amount of sludge. The spleen, pancreas adrenal glands and kidneys are unremarka ble. No free air or free fluid. No bowel obstruction. Small fat-containing ventral abdominal hernia. There is some mucosal thickening involving the distal rectum. Calcified vas deferens incidentally noted. The prostate is borderline enlarged. Urinary bladder is unremarkable. No free air or free f luid. No adenopathy identified. IMPRESSION: Slight increased mucosal thickening of the distal rectum which could be seen with mild colitis. Fatty liver and other incidental findings, not significantly changed from 11/28/2020 Signer Name: Henry Barber MD Signed: 12/19/2020 4:27 PM Workstation Name: [id number] Transcribed By: Dictated By: Henry Barber MD Electronically Authenticated By: Henry Barber MD Signed Date/Time: 12/19/201626 DD/ 24 TD/TT: Print - Medical Decision Making This is a 35-year-old male that presents with colitis with uvulitis. Patient is stable and was examined by me. Negative strep test. Labs obtained. UA obtained. CT of abdomen obtained and dictated by the radiologist. Patient is notified of the report with no questions noted by the patient. Vital signs are stable prior to discharge. Patient received medical treatment in the ED which patient stated symptoms has resovled and subsided. Was instructed note to operate any machinery due to possible drowsiness and stated someone will drive the patient home. A by mouth challenge has been obtained and patient tolerated well with no nausea vomiting. Patient be discharged with ciprofloxacin and Flagyl. Patient was also instructed to Follow-up with a primary care and drum builder doctor in 3-5 days or if symptoms worsen and continue return to emergency room as soon as possible. At time of discharge, the patient does not seem toxic or ill in appearance. No acute signs of distress noted. Patient agrees to discharge treatment plan of care. No further questions noted by the patient. Critical care attestation.: If time is entered above; I have spent that time in minutes in the direct care of this critically ill patient, excluding procedure time. ED Disposition Clinical Impression: Colitis, Uvulitis Disposition: DC- TO HOME OR SELFCARE Is pt being admited?: No Does the pt Need Aspirin: No Condition: Stable Instructions: Colitis, Uvulitis Additional Instructions: Follow-up with a primary care and drum builder doctor in 3-5 days or if symptoms worsen and continue return to emergency room as soon as possible. Prescriptions: Ciprofloxacin HCl 500 mg PO BID #14 tablet metroNIDAZOLE [Flagyl] 500 mg PO Q12HR #14 tab Nystas/Diphen/Xyl Visc/Mylanta [Magic Mouthwash] 30 ml MM Q8H PRN 5 Days #1 bottle PRN Reason: Sore Throat Ondansetron [Zofran Odt] 4 mg PO Q8HR PRN #12 tab.rapdis PRN Reason: Nausea Referrals: [facility] [Other] - 3-5 Days [facility] [Referring] - 3-5 Days RUEL BONE MD [Staff Physician] - 3-5 Days [facility] [Provider Group] - 3-5 Days Forms: Work/School Release Form(ED) Time of Disposition: 16:49
[2020-12-19 13:29] LABS: Bilirubin,Urine NEG (Negative); Blood,Urine NEG (Negative); Color,Urine Straw (Yellow); Urobilinogen,Urine < 2.0 mg/dL (<2.0); WBC,Urine < 1.0 /HPF (0.0-6.0)
[2020-12-19] MEDS ORDERED: dexAMETHasone 20 MG/5 ML VIAL IV ONE (14:15)
[2020-12-19] MEDS ORDERED: LIDOCAINE VISCOUS 2% 15 ML ORAL LIQD MM ONE (14:16)
[2020-12-19] MEDS ORDERED: METOCLOPRAMIDE 10 MG/2 ML INJ IV ONE (14:32)
--- NOTE | 2020-12-19 16:31 | Cat Scan Report ---
CT abdomen pelvis w con INDICATION / CLINICAL INFORMATION: Diffuse abdominal pain TECHNIQUE: Routine CT abdomen pelvis with contrast All CT scans at this location are performed using CT dose red uction for ALARA by means of automated exposure control. COMPARISON: 11/28/2020 FINDINGS: Abdomen and pelvis: The lower lungs are clear. The liver is fatty. The gallbladder contains a small a mount of sludge. The spleen, pancreas adrenal glands and kidneys are unremarkable. No free air or aishwarya e fluid. No bowel obstruction. Small fat-containing ventral abdominal hernia. There is some mucosal thickening involving the distal rectum. Calcified vas deferens incidentally not ed. The prostate is borderline enlarged. Urinary bladder is unremarkable. No free air or free fluid. No adenopathy identified. IMPRESSION: Slight increased mucosal thickening of the distal rectum which could be seen with mild co litis. Fatty liver and other incidental findings, not significantly changed from 11/28/2020 Signer Name: Henry Barber MD Signed: 12/19/2020 4:27 PM Workstation Name: [id number]
--- NOTE | 2020-12-19 16:40 | Cat Scan Report ---
NECK CT 12/19/2020 HISTORY: tonillar/uvula swelling r/o abscess omnipaque 300 100ml. Patient had an abdominal CT scan ea alia today for abdominal pain FINDINGS: Contrast enhanced CT images of the soft tissues of the neck were obtained. Images are evalu ated in the axial, coronal, and sagittal planes. There is no evidence of abnormal neck mass, fluid collection, or inflammation. There is a normal CT a ppearance to the laryngeal structures, epiglottis, and uvula. There is no evidence of tonsillar lymphoid hyperplasia. There is a normal CT appearance to the parotid and submandibular glands. Thyroid gland is unremarkabl e. IMPRESSION: No significant abnormality. All CT scans at this location are performed using dose reduction to ALARA by means of automated expos ure control. Signer Name: Alek Love MD Signed: 12/19/2020 4:36 PM Workstation Name: [id number]
[2020-12-19 18:01] VITALS: BP 145/76
== END 2020-12-19 18:01 | disposition home or self-care (01) ==
LOC: ED 05:33
DX: K12.2 Cellulitis and abscess of mouth (principal); K52.9 Noninfective gastroenteritis and colitis, unspecified; E11.65 Type 2 diabetes mellitus with hyperglycemia; I10 Essential (primary) hypertension; Z79.899 Other long term (current) drug therapy
CPT/HCPCS: 36415; 70491; 74177; 80053; 81001; 82805; 82962; 83690; 85025; 87116; 87430; 96361; 96374; 96375; 96376; 99284; J2270; J2405; J2765; J7030; Q9967

== ENCOUNTER 2021-05-22 07:10 | Emergency (ER) | payer OTHER ==
[2021-05-22] MEDS ORDERED: FAMOTIDINE 20 MG/2 ML INJ IV ONE (07:25)
[2021-05-22] MEDS ORDERED: METOCLOPRAMIDE 10 MG/2 ML INJ IV ONE (07:25)
[2021-05-22] MEDS ORDERED: SODIUM CHLORIDE 0.9% 1000 ML 2,000 ML IV ONE (07:25)
[2021-05-22] MEDS ORDERED: diphenhydrAMINE 50 MG/ML VIAL IV ONE (07:25)
[2021-05-22] MEDS ORDERED: DICYCLOMINE 20 MG TAB PO ONE (07:26)
[2021-05-22 07:52] LABS: Basophils % (Auto) 0.4 % (0.0-1.8); Hemoglobin 15.5 gm/dl (11.8-15.2); Lymphocytes # (Auto) 1.5 K/mm3 (1.2-5.4); Lymphocytes % (Auto) 13.3 % (13.4-35.0); Mean Corpuscular HGB Conc 34 % (32-34); Mean Corpuscular Volume 86 fl (84-94); Monocytes # (Auto) 0.3 K/mm3 (0.0-0.8); Monocytes % (Auto) 2.9 % (0.0-7.3); Platelet Count 253 K/mm3 (140-440); Red Blood Count 5.34 M/mm3 (3.65-5.03); Red Cell Distribution Width 13.1 % (13.2-15.2)
[2021-05-22 08:14] LABS: Alanine Aminotransferase 31 units/L (7-56); Albumin 4.9 g/dL (3.9-5); BUN/Creatinine Ratio 14; Blood Urea Nitrogen 14 mg/dL (9-20); Calcium 10.4 mg/dL (8.4-10.2); Hemolysis Index 8
[2021-05-22 09:50] LABS: Bilirubin,Urine NEG (Negative); Blood,Urine SM (Negative); Color,Urine Yellow (Yellow); Mucus,Urine FEW /HPF; Urobilinogen,Urine < 2.0 mg/dL (<2.0)
--- NOTE | 2021-05-22 10:16 | Cat Scan Report ---
CT ABDOMEN AND PELVIS WITH CONTRAST INDICATION / CLINICAL INFORMATION: Pt complains of abdominal pain with nausea and vomiting. TECHNIQUE: Axial CT images were obtained through the abdomen and pelvis after 100 cc Omnipaque [address] scans at this location are performed using CT dose reduction for ALARA by means of automated exposure control. COMPARISON: CT abdomen and pelvis with contrast from 12/19/2020. FINDINGS: LOWER CHEST: No significant abnormality. LIVER: There is steatosis without other significant abnormalities. GALLBLADDER: No significant abnormality. BILE DUCTS: No significant abnormality. PANCREAS: No significant abnormality. SPLEEN: No significant abnormality. ADRENALS: No significant abnormality. KIDNEYS / URETERS: No significant abnormality. STOMACH / SMALL BOWEL: No significant abnormality. COLON: There is mild generalized thickening of the colon from the proximal third of the transverse co gracy through the rectum without other significant abnormalities. APPENDIX: No significant abnormality. PERITONEUM: No free fluid. No free air. No fluid collection. LYMPH NODES: No significant adenopathy. AORTA / ARTERIES: No significant abnormality. IVC / VEINS: No significant abnormality. URINARY BLADDER: Underdistended with secondary wall thickening. No significant abnormality. REPRODUCTIVE ORGANS: No significant abnormality. ADDITIONAL FINDINGS: None. BONES: No significant abnormality. IMPRESSION: 1. Suspected uncomplicated acute colitis. 2. Additional findings as above. Signer Name: Juan Antonio Ontiveros MD Signed: 05/22/2021 10:11 AM Workstation Name: [id number]
[2021-05-22] MEDS ORDERED: metroNIDAZOLE/NS 500 MG/100 ML 500 MG/100 ML BAG IV ONE (10:22)
--- NOTE | 2021-05-22 10:37 | Emergency Department Report ---
ED Abdominal Pain HPI - General Chief Complaint: Abdominal Pain Stated Complaint: VOMITING Time Seen by Provider: 05/22/21 07:22 Source: patient Mode of arrival: Ambulatory Limitations: No Limitations - History of Present Illness Initial Comments: This is a 35-year-old male nontoxic, well nourished in appearance, no acute signs of distress presents to the ED with c/o of nausea and vomiting and abdominal pain 1 day. Patient describes vomiting as food content and yellow gastric acid. Patient describes abdominal pain as cramping and aching with le bean of 8/10 diffuse. Patient denies chest pain, short of breath, fever, hemoptysis, blood in stool, chills, headache, stiff neck, numbness or tingling. Patient denies any diarrhea or constipation. Denies any blood in stool. Patient denies any recent travels. Patient denies any allergies. Patient stated has hx of DX and missed his metformin this morning. MD Complaint: abdominal pain -: days(s) Location: diffuse Radiation: none Migration to: no migration Severity: mild Severity scale (0 -10): 8 Quality: cramping, aching Consistency: constant Improves With: nothing Worsens With: nothing Associated Symptoms: nausea, vomiting. denies: diarrhea, fever, chills, constipation, dysuria, hematemesis, hematochezia, melena, hematuria, anorexia, syncope - Related Data Home Medications Medication Instructions Recorded Confirmed Last Taken Lisinopril 11/28/20 Unknown glipiZIDE 11/28/20 Unknown metFORMIN [Glucophage] 500 mg PO QDAY 11/28/20 11/28/20 1 Day Ago ~11/27/20 Previous Rx's Medication Instructions Recorded Last Taken Type Dicyclomine [Bentyl] 10 mg PO Q6H PRN #30 ml 11/29/20 Unknown Rx Ciprofloxacin HCl 500 mg PO BID #14 tablet 12/19/20 Unknown Rx Nystas/Diphen/Xyl Visc/Mylanta 30 ml MM Q8H PRN 5 Days #1 bottle 12/19/20 Unknown Rx [Magic Mouthwash] Ondansetron [Zofran Odt] 4 mg PO Q8HR PRN #12 tab.rapdis 12/19/20 Unknown Rx metroNIDAZOLE [Flagyl] 500 mg PO Q12HR #14 tab 12/19/20 Unknown Rx Ciprofloxacin HCl 500 mg PO BID #14 tablet 05/22/21 Unknown Rx Ondansetron [Zofran Odt] 4 mg PO Q8HR PRN #12 tab.rapdis 05/22/21 Unknown Rx metroNIDAZOLE [Flagyl] 500 mg PO Q12HR #14 tab 05/22/21 Unknown Rx Allergies Allergy/AdvReac Type Severity Reaction Status Date / Time No Known Allergies Allergy Verified 05/22/21 07:18 ED Review of Systems ROS: Stated complaint: VOMITING Other details as noted in HPI Comment: All other systems reviewed and negative Constitutional: denies: chills, fever Eyes: denies: eye pain, eye discharge, vision change ENT: denies: ear pain, throat pain Respiratory: denies: cough, shortness of breath, wheezing Cardiovascular: denies: chest pain, palpitations Endocrine: no symptoms reported Gastrointestinal: abdominal pain, nausea, vomiting. denies: diarrhea, constip ation, hematemesis, melena, hematochezia Genitourinary: denies: urgency, dysuria Musculoskeletal: denies: back pain, joint swelling, arthralgia Skin: denies: rash, lesions Neurological: denies: headache, weakness, paresthesias Psychiatric: denies: anxiety, depression Hematological/Lymphatic: denies: easy bleeding, easy bruising ED Past Medical Hx - Past Medical History Hx Hypertension: Yes Hx Heart Attack/AMI: No Hx Congestive Heart Failure: No Hx Diabetes: Yes Hx Deep Vein Thrombosis: No Hx Pulmonary Embolism: No Hx GERD: No Hx Liver Disease: No Hx Renal Disease: No Hx Sickle Cell Disease: No Hx Arthritis: No Hx Headaches / Migraines: No Hx Seizures: No Hx Kidney Stones: No Hx Asthma: No Hx COPD: No Hx Tuberculosis: No Hx Dementia: No Hx HIV: No - Surgical History Hx Coronary Stent: No Hx Open Heart Surgery: No Hx Pacemaker: No Hx Internal Defibrillator: No Hx Cholecystectomy: No Hx Appendectomy: No Hx Breast Surgery: No - Social History Smoking Status: Never Smoker Substance Use Type: None - Medications Home Medications: Home Medications Medication Instructions Recorded Confirmed Last Taken Type Lisinopril 11/28/20 Unknown History glipiZIDE 11/28/20 Unknown History metFORMIN [Glucophage] 500 mg PO QDAY 11/28/20 11/28/20 1 Day Ago History ~11/27/20 Dicyclomine [Bentyl] 10 mg PO Q6H PRN #30 ml 11/29/20 Unknown Rx Ciprofloxacin HCl 500 mg PO BID #14 tablet 12/19/20 Unknown Rx Nystas/Diphen/Xyl Visc/Mylanta 30 ml MM Q8H PRN 5 Days #1 bottle 12/19/20 Unknown Rx [Magic Mouthwash] Ondansetron [Zofran Odt] 4 mg PO Q8HR PRN #12 tab.rapdis 12/19/20 Unknown Rx metroNIDAZOLE [Flagyl] 500 mg PO Q12HR #14 tab 12/19/20 Unknown Rx Ciprofloxacin HCl 500 mg PO BID #14 tablet 05/22/21 Unknown Rx Ondansetron [Zofran Odt] 4 mg PO Q8HR PRN #12 tab.rapdis 05/22/21 Unknown Rx metroNIDAZOLE [Flagyl] 500 mg PO Q12HR #14 tab 05/22/21 Unknown Rx ED Physical Exam - General Limitations: No Limitations General appearance: alert, in no apparent distress - Head Head exam: Present: atraumatic, normocephalic - Eye Eye exam: Present: normal appearance - ENT ENT exam: Present: normal exam, normal orophraynx - Neck Neck exam: Present: normal inspection, full ROM. Absent: lymphadenopathy - Respiratory Respiratory exam: Present: normal lung sounds bilaterally. Absent: respiratory distress, wheezes, rales, rhonchi, stridor, chest wall tenderness, accessory muscle use, decreased breath sounds, prolonged expiratory - Cardiovascular Cardiovascular Exam: Present: normal rhythm, tachycardia, normal heart sounds. Absent: irregular rhythm, systolic murmur, diastolic murmur, rubs, gallop - GI/Abdominal GI/Abdominal exam: Present: soft, tenderness (diffuse ), normal bowel sounds. Absent: distended, guarding, rebound, rigid, diminished bowel sounds - Extremities Exam Extremities exam: Present: full ROM - Back Exam Back exam: Present: normal inspection, full ROM. Absent: tenderness, CVA tenderness (R), CVA tenderness (L), muscle spasm, paraspinal tenderness, vertebral tenderness, rash noted - Neurological Exam Neurological exam: Present: alert, oriented X3, normal gait - Psychiatric Psychiatric exam: Present: normal affect, normal mood - Skin Skin exam: Present: warm, dry, intact, normal color. Absent: rash ED Course Vital Signs 05/22/21 05/22/21 05/22/21 07:12 07:16 10:21 Temperature 98.2 F 98.2 F 97.6 F Pulse Rate 121 H 117 H 109 H Respiratory 14 18 18 Rate Blood Pressure 146/96 117/60 Blood Pressure 146/96 [Left] O2 Sat by Pulse 100 98 99 Oximetry 05/22/21 11:41 Temperature 97.6 F Pulse Rate 89 Respiratory 20 Rate Blood Pressure Blood Pressure [Left] O2 Sat by Pulse 100 Oximetry - Reevaluation(s) Reevaluation #1: 05/22/21 10:38 Patient is speaking in full sentences with no signs of distress noted. ED Medical Decision Making - Lab Data Result diagrams: 05/22/21 07:38 05/22/21 07:38 Lab Results 05/22/21 05/22/21 05/22/21 Range/Units 07:20 07:38 07:38 WBC 10.9 (4.5-11.0) K/mm3 RBC 5.34 H (3.65-5.03) M/mm3 Hgb 15.5 H (11.8-15.2) gm/dl Hct 46.0 H (35.5-45.6) % MCV 86 (84-94) fl MCH 29 (28-32) pg MCHC 34 (32-34) % RDW 13.1 L (13.2-15.2) % Plt Count 253 (140-440) K/mm3 Lymph % (Auto) 13.3 L (13.4-35.0) % Worth % (Auto) 2.9 (0.0-7.3) % Eos % (Auto) 0.0 (0.0-4.3) % Baso % (Auto) 0.4 (0.0-1.8) % Lymph # (Auto) 1.5 (1.2-5.4) K/mm3 Worth # (Auto) 0.3 (0.0-0.8) K/mm3 Eos # (Auto) 0.0 (0.0-0.4) K/mm3 Baso # (Auto) 0.0 (0.0-0.1) K/mm3 Seg Neutrophils % 83.4 H (40.0-70.0) % Seg Neutrophils # 9.1 H (1.8-7.7) K/mm3 VBG pH (7.320-7.420) Sodium 136 L (137-145) mmol/L Potassium 4.5 (3.6-5.0) mmol/L Chloride 93.3 L (98-107) mmol/L Carbon Dioxide 24 (22-30) mmol/L Anion Gap 23 mmol/L BUN 14 (9-20) mg/dL Creatinine 1.0 (0.8-1.3) mg/dL Estimated GFR > 60 ml/min BUN/Creatinine Ratio 14 % Glucose 385 H (75-100) mg/dL POC Glucose 332 H (70-105) mg/dL Calcium 10.4 H (8.4-10.2) mg/dL Total Bilirubin 0.50 (0.1-1.2) mg/dL AST 18 (5-40) units/L ALT 31 (7-56) units/L Alkaline Phosphatase 113 (35-129) units/L Total Protein 9.3 H (6.3-8.2) g/dL Albumin 4.9 (3.9-5) g/dL Albumin/Globulin Ratio 1.1 % Lipase 12 L (13-60) units/L Urine Color (Yellow) Urine Turbidity (Clear) Urine pH (5.0-7.0) Ur Specific [place] (1.003-1.030) Urine Protein (Negative) mg/dL Urine Glucose (UA) (Negative) mg/dL Urine Ketones (Negative) mg/dL Urine Blood (Negative) Urine Nitrite (Negative) Urine Bilirubin (Negative) Urine Urobilinogen (<2.0) mg/dL Ur Leukocyte Esterase (Negative) Urine WBC (Auto) (0.0-6.0) /HPF Urine RBC (Auto) (0.0-6.0) /HPF Urine Mucus /HPF 05/22/21 05/22/21 Range/Units 07:38 09:27 WBC (4.5-11.0) K/mm3 RBC (3.65-5.03) M/mm3 Hgb (11.8-15.2) gm/dl Hct (35.5-45.6) % MCV (84-94) fl MCH (28-32) pg MCHC (32-34) % RDW (13.2-15.2) % Plt Count (140-440) K/mm3 Lymph % (Auto) (13.4-35.0) % Worth % (Auto) (0.0-7.3) % Eos % (Auto) (0.0-4.3) % Baso % (Auto) (0.0-1.8) % Lymph # (Auto) (1.2-5.4) K/mm3 Worth # (Auto) (0.0-0.8) K/mm3 Eos # (Auto) (0.0-0.4) K/mm3 Baso # (Auto) (0.0-0.1) K/mm3 Seg Neutrophils % (40.0-70.0) % Seg Neutrophils # (1.8-7.7) K/mm3 VBG pH 7.359 (7.320-7.420) Sodium (137-145) mmol/L Potassium (3.6-5.0) mmol/L Chloride (98-107) mmol/L Carbon Dioxide (22-30) mmol/L Anion Gap mmol/L BUN (9-20) mg/dL Creatinine (0.8-1.3) mg/dL Estimated GFR ml/min BUN/Creatinine Ratio % Glucose (75-100) mg/dL POC Glucose (70-105) mg/dL Calcium (8.4-10.2) mg/dL Total Bilirubin (0.1-1.2) mg/dL AST (5-40) units/L ALT (7-56) units/L Alkaline Phosphatase (35-129) units/L Total Protein (6.3-8.2) g/dL Albumin (3.9-5) g/dL Albumin/Globulin Ratio % Lipase (13-60) units/L Urine Color Yellow (Yellow) Urine Turbidity Clear (Clear) Urine pH 5.0 (5.0-7.0) Ur Specific [place] 1.033 H (1.003-1.030) Urine Protein 100 mg/dl (Negative) mg/dL Urine Glucose (UA) >=500 (Negative) mg/dL Urine Ketones 20 (Negative) mg/dL Urine Blood Sm (Negative) Urine Nitrite Neg (Negative) Urine Bilirubin Neg (Negative) Urine Urobilinogen < 2.0 (<2.0) mg/dL Ur Leukocyte Esterase Neg (Negative) Urine WBC (Auto) 1.0 (0.0-6.0) /HPF Urine RBC (Auto) 2.0 (0.0-6.0) /HPF Urine Mucus Few /HPF Lab Results 05/22/21 05/22/21 05/22/21 Range/Units 07:20 07:38 07:38 WBC 10.9 (4.5-11.0) K/mm3 RBC 5.34 H (3.65-5.03) M/mm3 Hgb 15.5 H (11.8-15.2) gm/dl Hct 46.0 H (35.5-45.6) % MCV 86 (84-94) fl MCH 29 (28-32) pg MCHC 34 (32-34) % RDW 13.1 L (13.2-15.2) % Plt Count 253 (140-440) K/mm3 Lymph % (Auto) 13.3 L (13.4-35.0) % Worth % (Auto) 2.9 (0.0-7.3) % Eos % (Auto) 0.0 (0.0-4.3) % Baso % (Auto) 0.4 (0.0-1.8) % Lymph # (Auto) 1.5 (1.2-5.4) K/mm3 Worth # (Auto) 0.3 (0.0-0.8) K/mm3 Eos # (Auto) 0.0 (0.0-0.4) K/mm3 Baso # (Auto) 0.0 (0.0-0.1) K/mm3 Seg Neutrophils % 83.4 H (40.0-70.0) % Seg Neutrophils # 9.1 H (1.8-7.7) K/mm3 VBG pH (7.320-7.420) Sodium 136 L (137-145) mmol/L Potassium 4.5 (3.6-5.0) mmol/L Chloride 93.3 L (98-107) mmol/L Carbon Dioxide 24 (22-30) mmol/L Anion Gap 23 mmol/L BUN 14 (9-20) mg/dL Creatinine 1.0 (0.8-1.3) mg/dL Estimated GFR > 60 ml/min BUN/Creatinine Ratio 14 % Glucose 385 H (75-100) mg/dL POC Glucose 332 H (70-105) mg/dL Calcium 10.4 H (8.4-10.2) mg/dL Total Bilirubin 0.50 (0.1-1.2) mg/dL AST 18 (5-40) units/L ALT 31 (7-56) units/L Alkaline Phosphatase 113 (35-129) units/L Total Protein 9.3 H (6.3-8.2) g/dL Albumin 4.9 (3.9-5) g/dL Albumin/Globulin Ratio 1.1 % Lipase 12 L (13-60) units/L Urine Color (Yellow) Urine Turbidity (Clear) Urine pH (5.0-7.0) Ur Specific [place] (1.003-1.030) Urine Protein (Negative) mg/dL Urine Glucose (UA) (Negative) mg/dL Urine Ketones (Negative) mg/dL Urine Blood (Negative) Urine Nitrite (Negative) Urine Bilirubin (Negative) Urine Urobilinogen (<2.0) mg/dL Ur Leukocyte Esterase (Negative) Urine WBC (Auto) (0.0-6.0) /HPF Urine RBC (Auto) (0.0-6.0) /HPF Urine Mucus /HPF 05/22/21 05/22/21 05/22/21 Range/Units 07:38 09:27 10:53 WBC (4.5-11.0) K/mm3 RBC (3.65-5.03) M/mm3 Hgb (11.8-15.2) gm/dl Hct (35.5-45.6) % MCV (84-94) fl MCH (28-32) pg MCHC (32-34) % RDW (13.2-15.2) % Plt Count (140-440) K/mm3 Lymph % (Auto) (13.4-35.0) % Worth % (Auto) (0.0-7.3) % Eos % (Auto) (0.0-4.3) % Baso % (Auto) (0.0-1.8) % Lymph # (Auto) (1.2-5.4) K/mm3 Worth # (Auto) (0.0-0.8) K/mm3 Eos # (Auto) (0.0-0.4) K/mm3 Baso # (Auto) (0.0-0.1) K/mm3 Seg Neutrophils % (40.0-70.0) % Seg Neutrophils # (1.8-7.7) K/mm3 VBG pH 7.359 (7.320-7.420) Sodium (137-145) mmol/L Potassium (3.6-5.0) mmol/L Chloride (98-107) mmol/L Carbon Dioxide (22-30) mmol/L Anion Gap mmol/L BUN (9-20) mg/dL Creatinine (0.8-1.3) mg/dL Estimated GFR ml/min BUN/Creatinine Ratio % Glucose (75-100) mg/dL POC Glucose 285 H (70-105) mg/dL Calcium (8.4-10.2) mg/dL Total Bilirubin (0.1-1.2) mg/dL AST (5-40) units/L ALT (7-56) units/L Alkaline Phosphatase (35-129) units/L Total Protein (6.3-8.2) g/dL Albumin (3.9-5) g/dL Albumin/Globulin Ratio % Lipase (13-60) units/L Urine Color Yellow (Yellow) Urine Turbidity Clear (Clear) Urine pH 5.0 (5.0-7.0) Ur Specific [place] 1.033 H (1.003-1.030) Urine Protein 100 mg/dl (Negative) mg/dL Urine Glucose (UA) >=500 (Negative) mg/dL Urine Ketones 20 (Negative) mg/dL Urine Blood Sm (Negative) Urine Nitrite Neg (Negative) Urine Bilirubin Neg (Negative) Urine Urobilinogen < 2.0 (<2.0) mg/dL Ur Leukocyte Esterase Neg (Negative) Urine WBC (Auto) 1.0 (0.0-6.0) /HPF Urine RBC (Auto) 2.0 (0.0-6.0) /HPF Urine Mucus Few /HPF - Radiology Data [facility] [address] [place] [address] Cat Scan Report Signed Patient: JOVANY ENGLAND MR# : [id number] : 1985 Acct:[id number] Age/Sex: 35 / M ADM Date: 05/22/21 Loc: ED Attending Dr: Ordering Physician: MANJEET ARAUJO NP Date of Service: 05/22/21 Procedure(s): CT abdomen pelvis w con Accession Number(s): [id number] cc: MANJEET ARAUJO NP CT ABDOMEN AND PELVIS WITH CONTRAST INDICATION / CLINICAL INFORMATION: Pt complains of abdominal pain with nausea and vomiting. TECHNIQUE: Axial CT images were obtained through the abdomen and pelvis after 100 cc Omnipaque [address] scans at this location are performed using CT dose reduction for ALARA by means of automated exposure control. COMPARISON: CT abdomen and pelvis with contrast from 12/19/2020. FINDINGS: LOWER CHEST: No significant abnormality. LIVER: There is steatosis without other significant abnormalities. GALLBLADDER: No significant abnormality. BILE DUCTS: No significant abnormality. PANCREAS: No significant abnormality. SPLEEN: No significant abnormality. ADRENALS: No significant abnormality. KIDNEYS / URETERS: No significant abnormality. STOMACH / SMALL BOWEL: No significant abnormality. COLON: There is mild generalized thickening of the colon from the proximal third of the transverse colon through the rectum without other significant abnormalities. APPENDIX: No significant abnormality. PERITONEUM: No free fluid. No free air. No fluid collection. LYMPH NODES: No significant adenopathy. AORTA / ARTERIES: No significant abnormality. IVC / VEINS: No significant abnormality. URINARY BLADDER: Underdistended with secondary wall thickening. No significant abnormality. REPRODUCTIVE ORGANS: No significant abnormality. ADDITIONAL FINDINGS: None. BONES: No significant abnormality. IMPRESSION: 1. Suspected uncomplicated acute colitis. 2. Additional findings as above. Signer Name: Juan Antonio Ontiveros MD Signed: 05/22/2021 10:11 AM Workstation Name: [id number] Transcribed By: LEXI Dictated By: Juan Antonio Ontiveros MD Electronically Authenticated By: Juan Antonio Ontiveros MD Signed Date/Time: 05/22/21 1011 DD/ 1008 TD/TT: - Medical Decision Making This is a 35-year-old male that presents with colitis. Patient is stable and was examined by me. Labs obtained. UA obtained. CT of abdomen obtained and dictated by the radiologist. Patient is notified of the report with no questions noted by the patient. Vital signs are stable prior to discharge. Patient received medical treatment in the ED which patient stated symptoms has resovled and subsided. Was instructed note to operate any machinery due to possible drowsiness and stated someone will drive the patient home. A by mouth challenge has been obtained and patient tolerated well with no nausea vomiting. Patient was also instructed to Follow-up with a primary care and glass smoother doctor in 3-5 days or if symptoms worsen and continue return to emergency room as soon as possible. At time of discharge, the patient does not seem toxic or ill in appearance. No acute signs of distress noted. Patient agrees to discharge treatment plan of care. No further questions noted by the patient. Critical care attestation.: If time is entered above; I have spent that time in minutes in the direct care of this critically ill patient, excluding procedure time. ED Disposition Clinical Impression: Colitis Disposition: 01 HOME / SELF CARE / HOMELESS Is pt being admited?: No Does the pt Need Aspirin: No Condition: Stable Instructions: Colitis Additional Instructions: Follow-up with a primary care and glass smoother doctor in 3-5 days or if symptoms worsen and continue return to emergency room as soon as possible. Prescriptions: Ciprofloxacin HCl 500 mg PO BID #14 tablet metroNIDAZOLE [Flagyl] 500 mg PO Q12HR #14 tab Ondansetron [Zofran Odt] 4 mg PO Q8HR PRN #12 tab.rapdis PRN Reason: Nausea Referrals: SABRINA LARSEN MD [Primary Care Provider] - 3-5 Days RUEL BONE MD [Staff Physician] - 3-5 Days [facility] [Provider Group] - 3-5 Days Forms: Work/School Release Form(ED) Time of Disposition: 11:45
[2021-05-22 11:37] VITALS: BP 117/60
== END 2021-05-22 12:52 | disposition home or self-care (01) ==
LOC: ED 07:10
DX: K52.9 Noninfective gastroenteritis and colitis, unspecified (principal); I10 Essential (primary) hypertension; E11.9 Type 2 diabetes mellitus without complications; Z79.899 Other long term (current) drug therapy
CPT/HCPCS: 36415; 74177; 80053; 81001; 82805; 82962; 83690; 85025; 96361; 96365; 96367; 96375; 99284; J1200; J1956; J2765; J7030; Q9967; 96366; 96368